=== PATIENT | female | born 1985 | race Two or more races ===

== ENCOUNTER 2018-10-09 12:35 | Outpatient (CLI) | payer OTHER ==
[~2018-10-09 12:35] MED LIST: [UNRECOGNIZED DRUG - OTHER]
== END 2018-10-09 12:55 | disposition home or self-care (01) ==
LOC: OFIC 805 12:35
DX: M62.838 Other muscle spasm (principal); J30.89 Other allergic rhinitis

== ENCOUNTER 2018-12-10 11:19 | Outpatient (CLI) | payer OTHER | END 2018-12-10 11:28 | disposition home or self-care (01) | LOC: RAD 501 11:19 | DX: J44.1 Chronic obstructive pulmonary disease with (acute) exacerbation (principal) ==

== ENCOUNTER 2019-05-14 11:04 | Outpatient (CLI) | payer OTHER ==
[~2019-05-14] VITALS: Ht 121.9 cm; Wt 66.7 kg
== END 2019-05-14 11:20 | disposition home or self-care (01) ==
LOC: OFIC 805 11:04
DX: H81.49 Vertigo of central origin, unspecified ear (principal); H81.13 Benign paroxysmal vertigo, bilateral

== ENCOUNTER 2019-05-21 07:58 | Outpatient (CLI) | payer OTHER ==
[~2019-05-21] VITALS: Ht 121.9 cm; Wt 70.3 kg
== END 2019-05-21 08:15 | disposition home or self-care (01) ==
LOC: OFIC 805 07:58
DX: H81.49 Vertigo of central origin, unspecified ear (principal); H81.13 Benign paroxysmal vertigo, bilateral; R20.0 Anesthesia of skin

== ENCOUNTER 2020-11-02 10:30 | Outpatient (CLI) | payer OTHER | END 2020-11-02 22:22 | disposition home or self-care (01) | LOC: PPH VACUNA 10:30 | DX: Z23 Encounter for immunization (principal) ==

== ENCOUNTER → 2020-11-23 | Outpatient (CLI) | payer OTHER | END | disposition home or self-care (01) | LOC: OFIC 805 12:45 | PROVIDERS: ATTEND Otolaryngology | DX: R42 Dizziness and giddiness (principal) ==

== ENCOUNTER 2020-12-07 09:00 | Outpatient (CLI) | payer OTHER | END 2020-12-07 09:07 | disposition home or self-care (01) | LOC: SONOGRAMA 09:00 | PROVIDERS: ATTEND Internal Medicine Gastroenterology | DX: R10.84 Generalized abdominal pain (principal) ==

== ENCOUNTER 2023-06-25 11:53 | Outpatient (CLI) | payer OTHER | END 2023-06-25 11:58 | disposition home or self-care (01) | LOC: NUCLEAR 11:53 | PROVIDERS: ATTEND Internal Medicine | DX: I10 Essential (primary) hypertension (principal) ==

== ENCOUNTER 2023-07-26 12:00 | Outpatient (CLI) | payer OTHER | END 2023-07-26 12:10 | disposition home or self-care (01) | LOC: PPH VACUNA 12:00 | PROVIDERS: ATTEND Emergency Medicine Pediatric Emergency Medicine | DX: Z23 Encounter for immunization (principal) | CPT/HCPCS: 90686; G0008 ==

== ENCOUNTER → 2023-10-03 12:46 | Outpatient (CLI) | payer OTHER | END | disposition home or self-care (01) | LOC: LAB 10-02 14:15 | DX: Z02.1 Encounter for pre-employment examination (principal) ==

== ENCOUNTER → 2023-12-26 | Outpatient (CLI) | payer OTHER ==
[~2023-12-26] MED LIST changes: +AIRBORNE EFFER1 EACH PO; +PEPCID AC20 MG PO; +PROAIR RESPICL90 MCG IH; +ZITHROMAX500 MG PO
[2023-12-26 10:43] LABS: HEMATOCRIT 39.3 % (36.0-45.00); HEMOGLOBIN 13.4 g/dL (12.0-15.00); MEAN CELL VOLUME 96.5 fL (80.00-100.00); MEAN CORPUSCULAR HGB CONC 34.1 g/dl (32.0-36.0); PLATELET COUNT 303 K/uL (150-450); RED BLOOD COUNT 4.07 M/uL (4.00-6.00); RED CELL DISTRIBUTION WIDTH 12.2 % (11.5-14.5)
== END | disposition home or self-care (01) ==
LOC: RAD 08:57 → PRENATAL 16:46
PROVIDERS: Internal Medicine Pulmonary Disease; ATTEND Obstetrics & Gynecology Maternal & Fetal Medicine
DX: Z76.1 Encounter for health supervision and care of foundling (principal)

== ENCOUNTER 2024-03-01 11:02 | Emergency (ER) | payer OTHER ==
[~2024-03-01] VITALS: Ht 149.9 cm; Wt 70.3 kg
[2024-03-01] MEDS ORDERED: COZAAR50 MG (11:13)
[2024-03-01] MEDS ORDERED: ADULT LOW DOSE81 M1 (11:13)
[2024-03-01 11:51] LABS: HEMATOCRIT 37.1 % (36.0-45.00); HEMOGLOBIN 12.8 g/dL (12.0-15.00); MEAN CELL VOLUME 98.2 fL (80.00-100.00); MEAN CORPUSCULAR HEMOGLOBIN 33.8 pg (27.00-32.0); MEAN CORPUSCULAR HGB CONC 34.4 g/dl (32.0-36.0); PLATELET COUNT 293 K/uL (150-450); RED BLOOD COUNT 3.78 M/uL (4.00-6.00); RED CELL DISTRIBUTION WIDTH 13.1 % (11.5-14.5)
[2024-04-01] MEDS ORDERED: TORADOL60 MG IM (13:48)
[2024-04-01] MEDS ORDERED: VOLTAREN ARTHRI20 GM TOP (13:56)
[2024-04-01] MEDS ORDERED: DICLOFENAC SODI50 MG PO (14:35)
[2024-04-01] MEDS ORDERED: PAIN RELIEF1 EACH TD (14:37)
[2024-04-03] MEDS ORDERED: KETO10TA2 PO (12:32)
== END 2024-03-01 12:03 | disposition home or self-care (01) ==
LOC: ER 11:03
PROVIDERS: General Practice
DX: L55.9 Sunburn, unspecified (principal); Z91.041 Radiographic dye allergy status

== ENCOUNTER 2024-10-09 07:48 | Outpatient (CLI) | payer OTHER ==
[~2024-10-09 07:48] MED LIST changes: +ADULT LOW DOSE81 M1; +COZAAR50 MG; +DICLOFENAC SODI50 MG PO; +KETO10TA2 PO; +PAIN RELIEF1 EACH TD; +TORADOL60 MG IM; +VOLTAREN ARTHRI20 GM TOP
[2024-10-09 09:05] LABS: HEMATOCRIT 40.1 % (36.0-45.00); HEMOGLOBIN 13.6 g/dL (12.0-15.00); MEAN CORPUSCULAR HEMOGLOBIN 33.5 pg (27.00-32.0); MEAN CORPUSCULAR HGB CONC 33.9 g/dl (32.0-36.0); PLATELET COUNT 261 K/uL (150-450); RED BLOOD COUNT 4.05 M/uL (4.00-6.00); RED CELL DISTRIBUTION WIDTH 12.9 % (11.5-14.5)
[2024-10-09 09:09] LABS: URINE APPEARANCE Clear; URINE BILIRRUBIN Negative (NEGATIVE); URINE BLOOD Negative; URINE COLOR Yellow; URINE GLUCOSE Negative (NEGATIVE); URINE KETONE Negative (NEGATIVE); URINE LEUKOCYTE Negative; URINE NITRATE Negative; URINE PROTEIN Negative (NEGATIVE); URINE UROBILINOGEN 0.2 E.U./dl
[2024-10-09 09:14] LABS: URINE BACTERIA 1627.6 uL (0.0-1933); URINE EPITHELIAL CELLS 17.5 uL (0.0-38.8); URINE RBC 15.4 uL (0.0-20.8); URINE WBC 7.2 uL (0.0-23.2)
[2024-10-09 10:28] LABS: CALCIUM 9.4 mg/dL (8.5-10.1); CHOL HDL RATIO 2.5 (0-5.0); CREATININE SERUM 0.82 mg/dL (0.55-1.02); GFR 76.82; POTASSIUM 4.25 mEq/L (3.5-5.1); T4 TOTAL 6.77 UG/DL (4.8-13.9); TSH 1.32 uIU/mL (0.358-3.74)
[2024-10-09 10:36] LABS: T3 TOTAL 0.793 ng/ml (0.846-2.02); VITAMIN D3 25 HYDROXY 37.33 ng/ml (30-120)
== END 2024-10-09 07:49 | disposition home or self-care (01) ==
LOC: LAB 07:48
DX: E55.9 Vitamin D deficiency, unspecified (principal); E03.9 Hypothyroidism, unspecified; E78.2 Mixed hyperlipidemia

== ENCOUNTER 2024-10-20 12:03 | Outpatient (CLI) | payer OTHER ==
[2024-10-22 06:04] LABS: HEPATITIS A ANTIBODY IGG Negative (Negative); HEPATITIS B SURFACE ANTIBODY Reactive (.); HEPATITIS C VIRUS ANTIBODY Non Reactive (Non Reactive)
== END 2024-10-20 12:07 | disposition home or self-care (01) ==
LOC: LAB 12:03
DX: A64 Unspecified sexually transmitted disease (principal); B17.9 Acute viral hepatitis, unspecified

== ENCOUNTER 2024-11-11 10:16 | Emergency (ER) | payer OTHER ==
[~2024-11-11] VITALS: Ht 149.9 cm; Wt 59.9 kg
[2024-11-11] MEDS ORDERED: KETOROLAC TROMETHAMINE 15 MG VIAL IM STA (10:45)
[2024-11-11] MEDS ORDERED: KETOROLAC TROMETHAMINE 60 MG VIAL IM ONE (11:22)
[2024-11-11] MEDS ORDERED: TRAM1TAB98 PO (12:01)
== END 2024-11-11 12:39 | disposition home or self-care (01) ==
LOC: ER 10:16
DX: G44.89 Other headache syndrome (principal); F45.41 Pain disorder exclusively related to psychological factors; Z91.041 Radiographic dye allergy status

== ENCOUNTER 2024-11-23 08:14 | Outpatient (CLI) | payer OTHER ==
[~2024-11-23 08:14] MED LIST changes: +TRAM1TAB98 PO
[2024-11-23 08:56] LABS: HEMATOCRIT 39.3 % (36.0-45.00); HEMOGLOBIN 13.4 g/dL (12.0-15.00); MEAN CELL VOLUME 97.6 fL (80.00-100.00); MEAN CORPUSCULAR HEMOGLOBIN 33.3 pg (27.00-32.0); MEAN CORPUSCULAR HGB CONC 34.1 g/dl (32.0-36.0); PLATELET COUNT 294 K/uL (150-450); RED BLOOD COUNT 4.02 M/uL (4.00-6.00); RED CELL DISTRIBUTION WIDTH 12.8 % (11.5-14.5)
[2024-11-23 08:59] LABS: PH,URINE 5.5 (5.0-8.0); URINE APPEARANCE Clear; URINE BILIRRUBIN Negative (NEGATIVE); URINE BLOOD Negative; URINE COLOR Yellow; URINE GLUCOSE Negative (NEGATIVE); URINE KETONE Negative (NEGATIVE); URINE LEUKOCYTE Negative; URINE NITRATE Negative; URINE PROTEIN Negative (NEGATIVE); URINE UROBILINOGEN 0.2 E.U./dl
[2024-11-23 09:06] LABS: URINE BACTERIA 39.1 uL (0.0-1933); URINE EPITHELIAL CELLS 4.1 uL (0.0-38.8); URINE RBC 7.2 uL (0.0-20.8); URINE WBC 2.2 uL (0.0-23.2)
[2024-11-23 09:10] LABS: URINE CAST 0.14 uL (0.0-1.40)
[2024-11-23 09:48] LABS: ALBUMIN 3.7 gm/dL (3.4-5.0); BILIRUBIN TOTAL 0.42 mg/dL (0.3-1.2); CALCIUM 9.1 mg/dL (8.5-10.1); CHOL HDL RATIO 3.1 (0-5.0); CREATININE SERUM 0.66 mg/dL (0.55-1.02); FREE TRIODOTIRONINE 2.19 pg/ml (2.18-3.98); GFR 98.69; GLOBULINA 3.6 G/DL (2.4-3.5); POTASSIUM 4.69 mEq/L (3.5-5.1); T4 TOTAL 5.38 UG/DL (4.8-13.9); TOTAL PROTEIN 7.3 gm/dL (6.4-8.2); TSH 0.914 uIU/mL (0.358-3.74)
[2024-11-23 09:59] LABS: C-REACTIVE PROTEIN 0.52 MG/DL (0.00-0.29)
[2024-11-24 06:04] LABS: INSULIN LEVELS 7.3 uIU/mL (2.6-24.9); LEUTEINIZING HORMONE 14.4 mIU/mL (.); PROGESTERONA 0.2 ng/mL (.)
[2024-11-26 00:07] LABS: test free 5.4 pg/mL (0.0-4.2)
== END 2024-11-23 08:18 | disposition home or self-care (01) ==
LOC: LAB 08:14
DX: E86.0 Dehydration (principal); R73.9 Hyperglycemia, unspecified; R94.6 Abnormal results of thyroid function studies; E78.00 Pure hypercholesterolemia, unspecified; M25.50 Pain in unspecified joint; E88.819 Insulin resistance, unspecified; E55.9 Vitamin D deficiency, unspecified; Z79.890 Hormone replacement therapy; E28.310 Symptomatic premature menopause

== ENCOUNTER 2024-12-01 13:41 | Outpatient (CLI) | payer OTHER | END 2024-12-01 13:47 | disposition home or self-care (01) | LOC: SONOGRAMA 13:41 | DX: E27.8 Other specified disorders of adrenal gland (principal) ==

== ENCOUNTER 2025-04-14 08:01 | Outpatient (CLI) | payer OTHER ==
[~2025-04-14 08:01] MED LIST changes: +ACETAZOLAMIDE125 MG PO; +DICY20TA PO; +ZITHROMAX TRI-500 MG PO
[2025-04-14 08:35] LABS: BASO % 1.1 % (0.1-1.2); EOS # 0.33 (0.04-0.54); EOS % 4.5 % (0.7-7.0); HEMATOCRIT 40.2 % (34.1-44.9); HEMOGLOBIN 13.5 g/dL (11.2-15.7); LYMPH # 2.13 (1.18-3.74); LYMPH % 28.7 % (19.3-53.1); MEAN CORPUSCULAR HEMOGLOBIN 32.5 pg (25.6-32.2); MONO # 0.67 (0.24-0.82); NEUT # 4.18 (1.56-6.13); NEUT % 56.4 % (34.0-71.1); PLATELET COUNT 290 K/uL (163-369); RED BLOOD COUNT 4.16 M/uL (3.93-5.22); RED CELL DISTRIBUTION WIDTH 11.9 % (11.6-14.4)
[2025-04-14 09:49] LABS: BILIRUBIN TOTAL 0.78 mg/dL (0.3-1.2); CALCIUM 9.4 mg/dL (8.5-10.1); CHOL HDL RATIO 3.2 (0-5.0); CREATININE SERUM 0.82 mg/dL (0.55-1.02); GFR 76.45; GLOBULINA 3.6 G/DL (2.4-3.5); POTASSIUM 4.32 mEq/L (3.5-5.1); T4 TOTAL 6.32 UG/DL (4.8-13.9); TOTAL PROTEIN 7.6 gm/dL (6.4-8.2); TSH 1.01 uIU/mL (0.358-3.74)
== END 2025-04-14 08:02 | disposition home or self-care (01) ==
LOC: LAB 08:01
PROVIDERS: ATTEND Internal Medicine
DX: I11.9 Hypertensive heart disease without heart failure (principal); E78.2 Mixed hyperlipidemia; E03.9 Hypothyroidism, unspecified; E11.9 Type 2 diabetes mellitus without complications